=== PATIENT | female | born 1985 | race Caucasian/White ===

== ENCOUNTER → 2016-10-27 | Outpatient (CLI) | payer BC ==
[2016-10-27 09:16] LABS: Basophils % (A) 1 %; Eosinophils # (A) 0.1 k/uL (0-0.7); Eosinophils % (A) 2 %; HCT 43.5 % (34.0-46.0); HDW 2.35; Luc # (Auto) 0.13; Luc % (Auto) 3; Lymphocytes # (A) 2.1 k/uL (1.0-4.8); Lymphocytes % (A) 40 %; MCH 29.5 pg (25.0-35.0); MCHC 32.3 g/dL (31.0-37.0); MCV 91.3 fL (80.0-100.0); Mean Platelet Volume 7.4; Monocytes # (A) 0.3 k/uL (0-1.0); Monocytes % (A) 5 %; Neutrophils # (A) 2.7 k/uL (1.3-7.7); Neutrophils % (A) 51 %; RBC 4.76 m/uL (3.80-5.40); RDW 13.1 % (11.5-15.5); WBC 5.4 k/uL (3.8-10.6); WBC (Perox) 5.69
[2016-10-27 09:27] LABS: Appearance,Urine Cloudy (Clear); Bilirubin,Urine Negative (Negative); Glucose,Urine (UA) Negative (Negative); Ketones,Urine Negative (Negative); Leukocyte Esterase,Urine Large (Negative); Mucus,Urine Occasional /hpf; Nitrite,Urine Negative (Negative); PH, Urine 6.5 (5.0-8.0); Particle Count 8440; Protein,Urine Trace (Negative); RBC,Urine 3 /hpf (0-5); Specific Gravity,Urine 1.016 (1.001-1.035); Squamous Epithelial Cell,Urine 19 /hpf (0-4); UA Billing (MACRO vs. MICRO) MICRO; Urobilinogen,Urine <2.0 mg/dL (<2.0); WBC,Urine 27 /hpf (0-5)
[2016-10-27 09:31] LABS: Uric Acid 4.6 mg/dL (3.7-7.4)
--- NOTE | 2016-10-27 10:07 | XR ---
Lumbar spine HISTORY: Numbness down arms and legs, spondylosis 3 views of the lumbar spine, no comparisons Lumbar vertebral bodies show preserved height, alignment, bone mineralization. Surgical clips are pre sent in the right upper quadrant. Disc spaces are maintained. Artifact overlying the pelvis on the fr ontal view. IMPRESSION: No significant abnormalities evident.
--- NOTE | 2016-10-27 10:08 | XR ---
Limited cervical spine HISTORY: Spondylosis 2 views of the cervical spine No comparisons Cervical vertebral bodies show preserved height, alignment, and bone mineralization. Disc spaces and prevertebral soft tissues are normal. IMPRESSION: Normal cervical spine.
== END | disposition home or self-care (01) ==
LOC: LABWHC1 08:28
PROVIDERS: ATTEND Internal Medicine
DX: M47.22 Other spondylosis with radiculopathy, cervical region (principal); M47.27 Other spondylosis with radiculopathy, lumbosacral region; F41.1 Generalized anxiety disorder; Z88.8 Allergy status to other drugs, medicaments and biological substances
CPT/HCPCS: 36415; 72040; 72100; 80061; 81001; 82306; 82550; 83036; 84439; 84443; 84550; 85025

== ENCOUNTER → 2016-12-13 | Outpatient (CLI) | payer BC ==
--- NOTE | 2016-12-13 15:52 | MR ---
EXAMINATION TYPE: MR brain wo/w con DATE OF EXAM: 12/13/2016 COMPARISON: NONE HISTORY: paresthesia of skin, numbness left side TECHNIQUE: Multiplanar, multisequence images of the brain and brainstem is performed without and with IV contras t, utilizing 14 mL intravenous MultiHance . FINDINGS: Diffusion weighted images demonstrate no evidence of a recent infarct or other diffusion ab normality. There is no extra-axial fluid collection or significant white matter signal abnormality. The ventricular system and cisternal spaces are normal in size and appearance. The brain volume is age appropriate. Optic chiasm is unremarkable. Midline structures demonstrate normal morphology. The craniocervical junction appears within normal limits. Post contrast images demonstrate no abnormal enhancement. The dural venous sinuses appear pa tent. The visualized sinuses are clear and the globes are intact. IMPRESSION: 1. Normal pre and postcontrast MRI brain
== END | disposition home or self-care (01) ==
LOC: RADMRIMAIN 13:32
PROVIDERS: ATTEND Internal Medicine
DX: R20.2 Paresthesia of skin (principal)
CPT/HCPCS: 70553; A9577

== ENCOUNTER → 2018-09-27 | Outpatient (CLI) | payer OTHER ==
[2018-09-27 13:05] LABS: Basophils % (A) 1 %; Eosinophils # (A) 0.2 k/uL (0-0.7); Eosinophils % (A) 3 %; HCT 41.1 % (34.0-46.0); HGB 13.5 gm/dL (11.4-16.0); Lymphocytes # (A) 1.9 k/uL (1.0-4.8); Lymphocytes % (A) 34 %; MCH 28.2 pg (25.0-35.0); MCHC 32.8 g/dL (31.0-37.0); MCV 86.1 fL (80.0-100.0); Mean Platelet Volume 10.4; Monocytes # (A) 0.3 k/uL (0-1.0); Monocytes % (A) 6 %; Neutrophils # (A) 3.1 k/uL (1.3-7.7); Neutrophils % (A) 56 %; Platelet Count 226 k/uL (150-450); RBC 4.77 m/uL (3.80-5.40); RDW 15.1 % (11.5-15.5); WBC 5.5 k/uL (3.8-10.6)
[2018-09-27 17:14] LABS: Albumin 4.4 g/dL (3.80-4.90); Albumin/Globulin Ratio 2.2 (1.60-3.17); Anion Gap 9.4 mmol/L (4.00-12.00); Calcium 9.1 mg/dL (8.7-10.3); Carbon Dioxide 23.6 mmol/L (21.6-31.8); LDL Cholesterol,Calculated 172.8 mg/dL (0.0-131.0); Potassium 4.5 mmol/L (3.5-5.5); Total Bilirubin 0.6 mg/dL (0.2-1.2); Total Protein 6.4 g/dL (6.2-8.2); VLDL Calculation 32.2 mg/dL (5.00-40.00)
[2018-09-27 21:22] LABS: Hemoglobin A1C 5.2 % (4.0-6.0)
== END | disposition home or self-care (01) ==
LOC: LABWHC1 08:28
PROVIDERS: ATTEND Internal Medicine
DX: F41.1 Generalized anxiety disorder (principal); B35.1 Tinea unguium
CPT/HCPCS: 36415; 80053; 80061; 82550; 83036; 84439; 84443; 85025

== ENCOUNTER → 2020-05-13 | Outpatient (CLI) | payer OTHER ==
--- NOTE | 2020-05-16 10:40 | MM ---
Reason for exam: screening (asymptomatic). Last mammogram was performed 11 years and 7 months ago. History: Patient is nulliparous. Family history of breast cancer in mother at age 70. Taking hormonal contraceptives for 1 year beginning at age 22. Physical Findings: A clinical breast exam by your physician is recommended on an annual basis and results should be correlated with mammographic findings. MG 3D Screening Mammo W/Cad Bilateral CC, MLO, and XCCL view(s) were taken. Prior study comparison: October 05, 2008, bilateral diagnostic digital mammog. The breast tissue is heterogeneously dense. This may lower the sensitivity of mammography. There is no discrete abnormality. No significant changes when compared with prior studies. ASSESSMENT: Negative, BI-RAD 1 RECOMMENDATION: Routine screening mammogram of both breasts in 1 year.
== END | disposition home or self-care (01) ==
LOC: RADMAMWWP 08:50
PROVIDERS: ATTEND Obstetrics & Gynecology
DX: Z12.31 Encounter for screening mammogram for malignant neoplasm of breast (principal); Z80.3 Family history of malignant neoplasm of breast
CPT/HCPCS: 77063; 77067

== ENCOUNTER → 2023-08-01 | Outpatient (CLI) | payer BC ==
--- NOTE | 2023-08-02 10:35 | MM ---
Reason for Exam: Screening (asymptomatic). Last mammogram was performed 3 year(s) and 3 month(s) ago. Patient History: Menarche at age 10. Patient has no children. Premenopausal. Currently using Hormonal Contraceptives, beginning at age 22 for 1 year. Mother had breast cancer, age 70. Last menstrual period: 07/28/2023 Risk Values: Darlin 5 year model risk: 1.1%. NCI Lifetime model risk: 18.8%. Prior Study Comparison: 10/05/2008 Bilateral Diagnostic Mammogram, [facility]. 05/13/2020 Bilateral Screening Mammogram, [facility]. Tissue Density: The breast tissue is heterogeneously dense. This may lower the sensitivity of mammography. Findings: Analyzed By CAD. There is no suspicious group of microcalcifications or new suspicious mass in either breast. Overall Assessment: Benign, BI-RAD 2 Management: Screening Mammogram of both breasts in 1 year. . Patient should continue monthly self-breast exams. A clinical breast exam by your physician is recommended on an annual basis. This exam should not preclude additional follow-up of suspicious palpable abnormalities. Note on Darlin scores and lifetime risk: 1. A Darlin score greater than 3% is considered moderate risk. If this is the case, consider specialist referral to assess eligibility for a risk reducing agent. 2. If overall lifetime risk for the development of breast cancer is 20% or higher, the patient may qualify for future screening with alternating mammogram and breast MRI. Electronically signed and approved by: Law Hubbard M.D. [facility]iolog[facility]
== END | disposition home or self-care (01) ==
LOC: RADMAMWWP 08:41
PROVIDERS: ATTEND Internal Medicine
DX: Z12.31 Encounter for screening mammogram for malignant neoplasm of breast (principal); Z80.3 Family history of malignant neoplasm of breast
CPT/HCPCS: 77067